=== PATIENT | female | born 1995 | race Caucasian/White ===

== ENCOUNTER 2018-05-31 08:25 | Day surgery (SDC) | payer OTHER ==
[2018-05-29 13:57] LABS: ALT/SGPT 14 U/L (12-78); AST/SGOT 12 U/L (15-37); Albumin 3.8 g/dL (3.4-5.0); Alkaline Phosphatase 75 U/L (45-117); BUN Blood Urea Nitrogen 8 mg/dL (7-18); Bicarbonate 25 mmol/L (21-32); Bilirubin Total 0.2 mg/dL (0.2-1.0); Glucose Level 93 mg/dL (74-106); Potassium 3.4 mmol/L (3.5-5.1); Protein, Total 7.9 g/dL (6.4-8.2); Sodium Level 141 mmol/L (136-145)
[2018-05-31] MEDS ORDERED: Ringers Lactate 1,000 ML IV ONE (08:45)
[2018-05-31] MEDS: BUPIVACA 0.5%/EPI 0.0005%/PF 30 ML VIAL ONE ×2 (09:55→11:04)
[2018-05-31] MEDS ORDERED: FENTANYL CITR 100 MCG/2 ML ONE ×2 (10:10→10:57)
[2018-05-31] MEDS ORDERED: DEXAMETHASONE 10 MG/ML VIAL ONE (10:10)
[2018-05-31] MEDS ORDERED: LIDOCAINE 1% MPF 5 ML VIAL ONE (10:10)
[2018-05-31] MEDS ORDERED: ROCURONIUM 50 MG/5 ML VIAL IV ONE (10:10)
[2018-05-31] MEDS ORDERED: PROPOFOL 200 MG/20 ML VIAL IV ONE (10:10)
[2018-05-31] MEDS ORDERED: MIDAZOLAM HCL 2 MG/2 ML INJ ONE (10:10)
[2018-05-31] MEDS ORDERED: EPINEPHRINE/PF 1 MG/ML AMP ONE ×2 (11:07→11:08)
[2018-05-31] MEDS ORDERED: ONDANSETRON HCL 40 MG/20 ML VIAL ONE (11:10)
[2018-05-31] MEDS ORDERED: NEOSTIGMINE 1 MG/ML -5 ML SYRINGE ONE (11:19)
[2018-05-31] MEDS ORDERED: GLYCOPYRROLATE 0.2 MG/ML SYR ONE (11:19)
--- NOTE | 2018-05-31 11:19 | P.OP ---
Pre-Op Diagnosis: Recurrent acute tonsillitis, Chronic tonsillitis Post-Op Diagnosis: Recurrent acute tonsillitis, Chronic tonsillitis Procedure: Tonsillectomy Anesthesia: Other (GA via ETT) Fluids/ Blood products: Other (crystalloid 500ml) Estimated blood loss: Other (<5ml) Specimen: Other (both tonsils) Complications: None Implants: None Indication: Patient persistent issues in spite of good medical management. Details of Operation: The patient was brought to the operating room and placed under general anesthesia via endotracheal tube. The head of bed was turned 90 degrees. A Shoulder roll was placed and the neck extended. A head drape was applied. The McIvor mouth gag was placed and suspended from the Joaquin stand. The oxygen concentrate was confirmed with the aviation tactical readiness officer and was less than forty percent. Weight-based dexamethasone was administered by the aviation tactical readiness officer. The soft palate was palpated and there was no submucous cleft. A red rubber catheter was placed in the nose and secured to retract the soft palate. The tonsils were noted to be medium, chronically inflamed with deep crypts and liths. The left tonsil was grasped with a straight Allis clamp. The bovie electocautery was used to incision the mucosa over the anterior pillar and identify the tonsillar capsule. The tonsil was dissected using cautery and blunt dissection until free from soft tissue attachments. A tonsil ball was placed to aid hemostasis. The right tonsil was removed in a similar manner. The laryngeal mirror was used to visualize the nasopharynx. The adenoid size was minimal. The adenoids were not removed. Hemostasis was achieved using packing and cautery as needed. Blood loss was minimal. All packing was removed. The tonsillar fossae were injected with 0.5% Marcaine with epinephrine. A total of 2mL was used. A Salum sump orogastric tube was used to decompress the stomach. The red rubber catheter was removed and used to suction the nasopharynx and nasal cavity. The mouth gag was removed; there was no evidence of injury to the lips, teeth or tongue. The mandible was mobile. Disposition: The patient was then awakened from anesthesia and taken to the recovery room in stable condition.
[2018-05-31] MEDS: MEPERIDINE HCL 50 MG/ML AMP ONE ×2 (11:35→11:40)
[2018-05-31] MEDS ORDERED: MEPERIDINE HCL 50 MG/ML AMP ONE (11:58)
[2018-05-31] MEDS ORDERED: HYDROCOD 2.5mg-ACETAMIN 108mg/5mL Soln PO ONE (12:45)
[2018-05-31] MEDS ORDERED: HYDROCOD 2.5mg-ACETAMIN 108mg/5mL Soln ONE (12:53)
== END 2018-05-31 13:15 | disposition home health service (06) ==
LOC: OR 08:25
PROVIDERS: ATTEND Otolaryngology
PROC: 0CTPXZZ Resection of Tonsils, External Approach (ICD-10-PCS; principal; 2018-05-31 10:30)
DX: J35.01 Chronic tonsillitis (principal); J03.91 Acute recurrent tonsillitis, unspecified; K58.9 Irritable bowel syndrome, unspecified; Z87.891 Personal history of nicotine dependence; Z82.49 Family history of ischemic heart disease and other diseases of the circulatory system
CPT/HCPCS: 36415; 80053; 81025; 88304; J0171; J1100; J2175; J2250; J2405; J2710; J3010